=== PATIENT | female | born 1995 | race Hispanic/Latino ===

== ENCOUNTER 2020-11-19 08:53 | Emergency (ER) | payer OTHER ==
[2020-11-19 09:29] LABS: #Basophils 0.1 10x3/uL (0.0-0.2); #Eosinphils 0.1 10x3/uL (0.0-0.5); #Monocytes 0.5 10x3/uL (0.0-1.1); %Basophils 0.8 % (0.0-2.0); %Eosinophils 1.8 % (0.0-6.0); %Lymphocytes 26.5 % (18.0-47.0); %Monocytes 6.9 % (0.0-10.0); %Neutrophils 63.6 % (40.0-75.0); Hemoglobin 12.2 g/dL (12.0-15.5); Mean Corpuscular HGB CONC 35.5 g/dL (32.0-36.0); Mean Corpuscular Hemoglobin 31.3 pg (27.0-33.0); Mean Corpuscular Volume 88.2 fl (81.6-98.3); Mean Platelet Volume 9.6 fl (7.4-10.4); Platelet Count 270 10x3/uL (150-450); RBC Distribution Width 13.1 % (11.5-14.5); White Blood Cell (WBC) Count 7.8 10x3/uL (3.5-10.5)
[2020-11-19 10:00] LABS: Bilirubin Neg (Negative); Blood, Urine 150 (Negative); Clarity Cloudy (Clear); Glucose, Urine (Dipstick) Normal (Negative); Ketone, Urine Negative (Negative); Leukocyte 25 (Negative); Nitrite Negative (Negative); Protein, Urine (Dipstick) Negative (Neg-Trace); Specific Gravity, Urine 1.015 (1.002-1.036); Urobilinogen Normal mg/dL (Less than 2)
[2020-11-19 10:15] LABS: RBC/HPF 0-3 HPF (0-3)
[2020-11-19 10:29] LABS: WBC/HPF 0-3 HPF (0-3)
[2020-11-19 10:32] LABS: Bacteria/HPF 1+ HPF (None Seen); Mucous/LPF Rare LPF (<2+)
== END 2020-11-19 12:08 | disposition home or self-care (01) ==
LOC: CSHERS 08:53
DX: O20.0 Threatened abortion (principal); Z3A.14 14 weeks gestation of pregnancy
CPT/HCPCS: 76815; 81003; 81015; 84702; 85025; 86900; 86901

== ENCOUNTER 2021-04-21 21:56 | Day surgery (SDC) | payer OTHER ==
[2021-04-21 22:18] VITALS: BMI 23.1
[2021-04-21] MEDS ORDERED: hydrALAZINE 20 MG/ML VIAL SLOW IVP PRN (22:42)
[2021-04-21] MEDS ORDERED: Ondansetron ODT 4 MG TAB SL SCH (22:45)
[2021-04-21] MEDS ORDERED: Lactated Ringer's 1,000 ML IV SCH (23:15)
[2021-04-22] MEDS ORDERED: Lactated Ringer's 1,000 ML IV SCH (00:30)
== END 2021-04-22 02:30 | disposition home or self-care (01) ==
LOC: CSHLD/OP 21:56
PROVIDERS: ATTEND Obstetrics & Gynecology
DX: O47.1 False labor at or after 37 completed weeks of gestation (principal); O99.820 Streptococcus B carrier state complicating pregnancy; O36.8330 Maternal care for abnormalities of the fetal heart rate or rhythm, third trimester, not applicable or unspecified; O99.891 Other specified diseases and conditions complicating pregnancy; R11.0 Nausea; Z3A.37 37 weeks gestation of pregnancy
CPT/HCPCS: 96360; 96361; 99283; Q0162

== ENCOUNTER 2021-04-23 07:24 | Inpatient (IN) | payer OTHER ==
[2021-04-23] MEDS ORDERED: Penicillin G Potassium 5 MILL.UNITS VIAL ONE (08:01)
[2021-04-23] MEDS ORDERED: hydrALAZINE 20 MG/ML VIAL SLOW IVP PRN ×2 (08:29→09:09)
[2021-04-23] MEDS ORDERED: Acetaminophen 500 MG TAB PO PRN (08:29)
[2021-04-23] MEDS ORDERED: HYDROcodone/Acetaminophen 5/325 mg Tablet PO PRN ×3 (08:29→09:09)
[2021-04-23] MEDS ORDERED: Promethazine HCl 25 MG/ML VIAL IM PRN (08:29)
[2021-04-23] MEDS ORDERED: Ondansetron PF 4 MG/2 ML Vial IVP PRN ×2 (08:29→09:09)
[2021-04-23] MEDS ORDERED: Butorphanol Tartrate 1 MG/ML VIAL SLOW IVP PRN (08:29)
[2021-04-23] MEDS ORDERED: Ibuprofen 800 MG TAB PO PRN (08:29)
[2021-04-23] MEDS ORDERED: Misoprostol 200 MCG TAB PR PRN (08:29)
[2021-04-23] MEDS ORDERED: Lidocaine 1% (PF) 30 ML VIAL SC PRN (08:29)
[2021-04-23] MEDS ORDERED: NS w/ Oxytocin 30 units 500 ML IV SCH ×2 (08:30→09:15)
[2021-04-23] MEDS ORDERED: Lactated Ringer's 1,000 ML IV SCH (08:30)
[2021-04-23] MEDS ORDERED: Penicillin G Potassium 5 MILL.UNITS in Sodium Chloride 0.9% 100 ML IVPB SCH (08:30)
[2021-04-23] MEDS ORDERED: NS w/ Oxytocin 30 units 500 ML ONE (08:40)
[2021-04-23] MEDS ORDERED: Lidocaine 1% (PF) 30 ML VIAL ONE (08:40)
[2021-04-23] MEDS ORDERED: Bisacodyl 10 MG SUPP PR PRN (09:09)
[2021-04-23] MEDS ORDERED: diphenhydrAMINE 25 MG CAP PO PRN (09:09)
[2021-04-23] MEDS ORDERED: Zolpidem Tartrate 5 MG TAB PO PRN (09:09)
[2021-04-23] MEDS ORDERED: Lanolin Ointment 7 GM TUBE TOP PRN (09:09)
[2021-04-23] MEDS ORDERED: Milk Of Magnesia 30 ML UDCUP PO PRN (09:09)
[2021-04-23] MEDS ORDERED: Preparation H Ointment 28 GM TUBE PR PRN (09:09)
[2021-04-23] MEDS ORDERED: Misoprostol 200 MCG TAB VAG PRN (09:09)
[2021-04-23 09:11] LABS: Hemoglobin 11.9 g/dL (12.0-15.5); Mean Corpuscular HGB CONC 32.5 g/dL (32.0-36.0); Mean Corpuscular Hemoglobin 27.9 pg (27.0-33.0); Mean Corpuscular Volume 85.9 fl (81.6-98.3); Mean Platelet Volume 12.3 fl (7.4-10.4); Platelet Count 182 10x3/uL (150-450); RBC Distribution Width 16.2 % (11.5-14.5); Red Blood Cell (RBC) Count 4.26 10x6/uL (3.90-5.03); White Blood Cell (WBC) Count 5.7 10x3/uL (3.5-10.5)
[2021-04-23] MEDS: Penicillin G 2.5 MILL.units 2.5 MILL.UNITS in Premix Bag 1 BAG IVPB SCH ×2 (09:23→13:23)
[2021-04-23 09:38] LABS: Hep B Surf Ag Non-Reactive S/CO (NonReactive)
[2021-04-23 09:39] LABS: HBSAg Index 0.12 S/CO (0-0.99); Syphilis Antibody Nonreactive (Nonreactive); Syphilis Antibody Index 0.06 S/CO (<1.00 Non-Reactive)
[2021-04-23] MEDS ORDERED: Phytonadione Neonatal 1 MG/0.5 ML AMP ONE (10:21)
[2021-04-23] MEDS ORDERED: Misoprostol 200 MCG TAB ONE (10:52)
[2021-04-23 11:33] VITALS: BMI 25.4
[2021-04-23] MEDS: Ibuprofen 800 MG TAB PO SCH (16:57)
[2021-04-23] MEDS: Ferrous Sulfate 325 MG TAB PO SCH (16:59)
[2021-04-23 22:53] LABS: SARS-CoV-2 PCR by NAA DETECTED (NotDetected)
[2021-04-24] MEDS: Docusate Calcium (SURFAK) 240 MG CAP PO SCH ×2 (02:43→11:02)
[2021-04-24] MEDS: Ibuprofen 800 MG TAB PO SCH (02:43)
[2021-04-24] MEDS ORDERED: Prenatal Vitamin 1 TAB PO SCH (09:00)
[2021-04-24] MEDS ORDERED: Boostrix 0.5 ML (Tdap) VIAL IM ONE (09:09)
[2021-04-24] MEDS: Ferrous Sulfate 325 MG TAB PO SCH (11:01)
[2021-04-24 11:28] VITALS: BP 111/68; TEMP 98.5
== END 2021-04-24 14:25 | disposition home or self-care (01) | DRG 805 ==
LOC: CSHLD/OP 07:24 → CSHLD 08:21 → CSHPP 13:03
PROVIDERS: ADMIT Obstetrics & Gynecology; ATTEND Obstetrics & Gynecology
PROC: 10E0XZZ Delivery of Products of Conception, External Approach (ICD-10-PCS; principal; 2021-04-23)
DX: O98.82 Other maternal infectious and parasitic diseases complicating childbirth (principal); U07.1 COVID-19; Z37.0 Single live birth; B95.1 Streptococcus, group B, as the cause of diseases classified elsewhere; Z3A.37 37 weeks gestation of pregnancy; O98.52 Other viral diseases complicating childbirth
CPT/HCPCS: 36415; 51701; 85027; 86780; 86850; 86900; 86901; 87340; 99285; J2540; J2590; J7120; U0003; U0005

== ENCOUNTER 2022-07-24 12:03 | Observation (INO) | payer OTHER ==
[2022-07-24] MEDS ORDERED: hydrALAZINE 20 MG/ML VIAL SLOW IVP PRN (12:11)
[2022-07-24] MEDS ORDERED: Ondansetron PF 4 MG/2 ML Vial IVP PRN (12:11)
[2022-07-24] MEDS ORDERED: Acetaminophen 500 MG TAB PO PRN (12:11)
[2022-07-24] MEDS ORDERED: Zolpidem Tartrate 5 MG TAB PO PRN (12:11)
[2022-07-24] MEDS ORDERED: Promethazine HCl 25 MG/ML VIAL IM PRN (12:11)
[2022-07-24] MEDS ORDERED: Dextrose 5%-Lactated Ringers 1,000 ML IV SCH (12:15)
[2022-07-24] MEDS ORDERED: Betamet Acet/Betamet Na Ph 30 MG/5 ML VIAL ONE (14:08)
[2022-07-24] MEDS ORDERED: Terbutaline Sulfate 1 MG/ML VIAL ONE (14:08)
[2022-07-24] MEDS ORDERED: Terbutaline Sulfate 1 MG/ML VIAL SC SCH (14:15)
[2022-07-24] MEDS: Betamet Acet/Betamet Na Ph 30 MG/5 ML VIAL IM SCH (14:41)
[2022-07-24] MEDS: hydrOXYzine Pamoate 25 mg Capsule PO SCH (14:44)
[2022-07-24] MEDS ORDERED: Fentanyl 2 mcg/Bup 0.1% Cadd 0 ML ONE (14:55)
[2022-07-24 15:13] VITALS: BMI 24.4
[2022-07-24 15:33] LABS: SARS-CoV-2 NAA Rapid Test Not Detected (NotDetected)
[2022-07-24 16:12] LABS: #Monocytes 0.5 10x3/uL (0.0-1.1); #Neutrophils 5.2 10x3/uL (1.5-8.4); %Basophils 0.4 % (0.0-2.0); %Eosinophils 0.4 % (0.0-6.0); %Lymphocytes 23.6 % (18.0-47.0); %Monocytes 6.5 % (0.0-10.0); %Neutrophils 68.6 % (40.0-75.0); Hemoglobin 11.4 g/dL (12.0-15.5); Mean Corpuscular HGB CONC 34.1 g/dL (32.0-36.0); Mean Corpuscular Hemoglobin 29.2 pg (27.0-33.0); Mean Corpuscular Volume 85.6 fl (81.6-98.3); Platelet Count 293 10x3/uL (150-450); White Blood Cell (WBC) Count 7.6 10x3/uL (3.5-10.5)
[2022-07-24 16:44] LABS: HBSAg Index 0.21 S/CO (0-0.99); Hep B Surf Ag Non-Reactive S/CO (NonReactive); Syphilis Antibody Nonreactive (Nonreactive); Syphilis Antibody Index 0.05 S/CO (<1.00 Non-Reactive)
[2022-07-24] MEDS ORDERED: hydrOXYzine Pamoate 25 mg Capsule PO PRN (17:37)
[2022-07-24] MEDS ORDERED: NIFEdipine XL 30 MG TAB PO SCH (17:45)
[2022-07-24 17:51] LABS: Bilirubin Neg (Negative); Blood, Urine Negative (Negative); Clarity Clear (Clear); Glucose, Urine (Dipstick) Normal (Negative); Ketone, Urine Negative (Negative); Leukocyte Negative (Negative); Nitrite Negative (Negative); Protein, Urine (Dipstick) Negative (Neg-Trace); Urobilinogen Normal mg/dL (Less than 2)
[2022-07-24 19:28] VITALS: BP 111/58
[2022-07-25] MEDS ORDERED: NIFEdipine XL 30 MG TAB PO SCH (09:00)
[2022-07-25] MEDS: hydrOXYzine Pamoate 25 mg Capsule PO SCH (09:07)
[2022-07-25] MEDS: Betamet Acet/Betamet Na Ph 30 MG/5 ML VIAL IM SCH (14:35)
== END 2022-07-25 14:55 | disposition home health service (06) ==
LOC: CSHLD/OP 12:03 → CSHLD 12:46
PROVIDERS: ADMIT Obstetrics & Gynecology; ATTEND Obstetrics & Gynecology
DX: O60.03 Preterm labor without delivery, third trimester (principal); Z3A.31 31 weeks gestation of pregnancy; Z20.822 Contact with and (suspected) exposure to COVID-19
CPT/HCPCS: 36415; 81003; 85025; 86780; 86850; 86900; 86901; 87340; 96372; G0378; J3105; Q0177; U0002

== ENCOUNTER 2022-08-28 19:10 | Inpatient (IN) | payer OTHER ==
[2022-08-28] MEDS: NS w/ Oxytocin 30 units 500 ML IV SCH ×2 (19:35→21:21)
[2022-08-28] MEDS ORDERED: Promethazine HCl 25 MG/ML VIAL IM PRN (19:47)
[2022-08-28] MEDS ORDERED: Ondansetron PF 4 MG/2 ML Vial IVP PRN (19:47)
[2022-08-28] MEDS ORDERED: Lidocaine 1% (PF) 30 ML VIAL SC PRN (19:47)
[2022-08-28] MEDS ORDERED: hydrALAZINE 20 MG/ML VIAL SLOW IVP PRN ×2 (19:47→22:00)
[2022-08-28] MEDS ORDERED: Acetaminophen 500 MG TAB PO PRN (19:54)
[2022-08-28] MEDS ORDERED: Lactated Ringer's 1,000 ML IV SCH (20:00)
[2022-08-28 20:08] VITALS: BMI 23.6
[2022-08-28 20:09] LABS: Hemoglobin 12.1 g/dL (12.0-15.5); Mean Corpuscular HGB CONC 33.7 g/dL (32.0-36.0); Mean Corpuscular Hemoglobin 28.1 pg (27.0-33.0); Mean Corpuscular Volume 83.5 fl (81.6-98.3); Mean Platelet Volume 11.5 fl (7.4-10.4); Platelet Count 237 10x3/uL (150-450); RBC Distribution Width 14.7 % (11.5-14.5); White Blood Cell (WBC) Count 12.5 10x3/uL (3.5-10.5)
[2022-08-28 20:37] LABS: Syphilis Antibody Nonreactive (Nonreactive); Syphilis Antibody Index 0.04 S/CO (<1.00 Non-Reactive)
[2022-08-28 20:39] LABS: HBSAg Index 0.22 S/CO (0-0.99); Hep B Surf Ag Non-Reactive S/CO (NonReactive)
[2022-08-28 21:47] LABS: SARS-CoV-2 NAA Rapid Test DETECTED (NotDetected)
[2022-08-28] MEDS ORDERED: Milk Of Magnesia 30 ML UDCUP PO PRN (22:00)
[2022-08-28] MEDS ORDERED: Boostrix 0.5 ML (Tdap) VIAL (>/=7 yrs of age) IM ONE (22:00)
[2022-08-28] MEDS ORDERED: Bisacodyl 10 MG SUPP PR PRN (22:00)
[2022-08-28] MEDS ORDERED: Docusate 100 MG CAP PO SCH (22:15)
[2022-08-28] MEDS: Ibuprofen 800 MG TAB PO SCH (22:17)
[2022-08-29 05:18] LABS: #Basophils 0.1 10x3/uL (0.0-0.2); #Monocytes 0.7 10x3/uL (0.0-1.1); #Neutrophils 5.4 10x3/uL (1.5-8.4); %Basophils 0.6 % (0.0-2.0); %Lymphocytes 23.7 % (18.0-47.0); %Monocytes 8.2 % (0.0-10.0); %Neutrophils 66.6 % (40.0-75.0); Hemoglobin 10.5 g/dL (12.0-15.5); Mean Corpuscular HGB CONC 33.4 g/dL (32.0-36.0); Mean Corpuscular Hemoglobin 28.4 pg (27.0-33.0); Mean Corpuscular Volume 84.9 fl (81.6-98.3); Mean Platelet Volume 11.7 fl (7.4-10.4); Platelet Count 183 10x3/uL (150-450); RBC Distribution Width 14.6 % (11.5-14.5); White Blood Cell (WBC) Count 8.2 10x3/uL (3.5-10.5)
[2022-08-29] MEDS: Ibuprofen 800 MG TAB PO SCH ×3 (05:52→21:26)
[2022-08-29] MEDS: Ferrous Sulfate 325 MG TAB PO SCH ×2 (08:34→17:24)
[2022-08-29] MEDS: Docusate 100 MG CAP PO SCH ×2 (08:59→21:26)
[2022-08-30] MEDS: Ibuprofen 800 MG TAB PO SCH (05:13)
[2022-08-30 07:47] VITALS: BP 110/69; TEMP 98
[2022-08-30] MEDS: Ferrous Sulfate 325 MG TAB PO SCH (09:44)
[2022-08-30] MEDS: Docusate 100 MG CAP PO SCH (10:21)
== END 2022-08-30 14:00 | disposition home or self-care (01) | DRG 805 ==
LOC: CSHLD/OP 19:10 → CSHLD 19:41 → CSHPED 23:17
PROVIDERS: ADMIT Obstetrics & Gynecology; ATTEND Obstetrics & Gynecology
PROC: 10E0XZZ Delivery of Products of Conception, External Approach (ICD-10-PCS; principal; 2022-08-28)
PROC: 8E0ZXY6 Isolation (ICD-10-PCS; 2022-08-28)
DX: O60.14X0 Preterm labor third trimester with preterm delivery third trimester, not applicable or unspecified (principal); U07.1 COVID-19; Z37.0 Single live birth; O98.52 Other viral diseases complicating childbirth; Z3A.36 36 weeks gestation of pregnancy; O77.0 Labor and delivery complicated by meconium in amniotic fluid
CPT/HCPCS: 36415; 85025; 85027; 86780; 86850; 86900; 86901; 87340; 99285; J2590; U0002